=== PATIENT | female | born 1965 | race Caucasian/White ===

== ENCOUNTER 2021-01-05 14:00 | Outpatient (CLI) | payer BC | END 2021-01-05 23:59 | disposition home or self-care (01) | LOC: D.MAMMO 14:00 | PROVIDERS: ATTEND Clinical Nurse Specialist Adult Health | DX: Z12.31 Encounter for screening mammogram for malignant neoplasm of breast (principal) ==

== ENCOUNTER → 2021-01-09 14:52 | Outpatient (CLI) | payer BC | END | disposition home or self-care (01) | LOC: D.MRI 14:52 | PROVIDERS: ATTEND Nurse Practitioner Family | DX: M67.441 Ganglion, right hand (principal); M67.442 Ganglion, left hand ==